=== PATIENT | male | born 1990 ===

== ENCOUNTER → 2025-02-10 11:14 | Outpatient (REF) | payer SELFPAY ==
[2025-02-10 11:19] LABS: COC Drug Screen Collection Only
[2025-02-11 05:54] LABS: Hep A Ab, Total Positive (Negative)
[2025-02-11 07:50] LABS: Measles Antibodies, IgG >300.0 AU/mL (Immune >16.4); Mumps Abs, IgG 160.0 AU/mL (Immune >10.9); Rubella Antibodies, IgG <0.90 index (Immune >0.99)
== END ==
LOC: LAB 11:14
CPT/HCPCS: 36415; 86480; 86706; 86708; 86735; 86762; 86765; 86787